=== PATIENT | male | born 1945 | race Caucasian/White ===

== ENCOUNTER 2019-05-23 08:54 | Emergency (ER) | payer MEDICARE, OTHER ==
--- NOTE | 2019-05-23 09:21 | EDM.PDOC ---
ED HPI GENERAL MEDICAL PROBLEM - General Chief Complaint: Lower Extremity Injury/Pain Stated Complaint: PAIN IN LEFT KNEE Time Seen by Provider: 05/23/19 09:20 Source of Information: Reports: Patient History Limitations: Reports: No Limitations - History of Present Illness INITIAL COMMENTS - FREE TEXT/NARRATIVE: 73-year-old male who reports onset of aching all over increased redness and swelling in his left lower leg getting approximately 2 days ago. The symptoms have worsened with time and at 3 AM today he began to have pain in his left knee has progressively worsened and he is unable to ambulate secondary to the pain. He also has noticed that his left knee is swollen, red and has increased warmth. He has had chills but has measured no fever at home. He also has developed nausea but has had no vomiting. His appetite is somewhat off. No difficulty breathing. No chest pain. The pain in his knee as a 10/10 with movement and is a "pain" pain. The pain is a 2/10 when he is at rest. No other joint pains other than his bodyaches. No trauma to his left knee or left leg. He always has some swelling in his left leg which has been present for the past 1-2 years but it usually improves over the weekend when he is off of his leg. There are no other associated signs or symptoms. There are no other modifying factors. Onset: Other (2 days ago as above with left knee pain beginning at 3 AM today.) Duration: Getting Worse Location: Reports: Lower Extremity, Left, Other (Aching all over) Quality: Reports: Ache Severity: Moderate (to severe) Improves with: Reports: Immobilization, Rest Worsens with: Reports: Other (Palpation), Movement Context: Reports: Other (As above) Associated Symptoms: Reports: Fever/Chills (Chills but no fever measured), Loss of Appetite, Nausea/Vomiting, Other (Redness on left lower leg.) Treatments WHIPPER: Reports: Other (see below) (Nothing) L knee Pain Score (Numeric/FACES): 4 - Related Data Allergies Allergy/AdvReac Type Severity Reaction Status Date / Time No Known Allergies Allergy Verified 05/23/19 09:04 Past Medical History HEENT History: Reports: Cataract Cardiovascular History: Reports: Arrhythmia, High Cholesterol, Hypertension Gastrointestinal History: Reports: GERD Other Gastrointestinal History: umbellical hernia Musculoskeletal History: Reports: Arthritis, Back Pain, Chronic, Osteoarthritis Endocrine/Metabolic History: Reports: Obesity/BMI 30+ Dermatologic History: Reports: Psoriasis - Infectious Disease History Infectious Disease History: Reports: Chicken Pox, Mumps - Past Surgical History HEENT Surgical History: Reports: Adenoidectomy, Cataract Surgery, Tonsillectomy Other HEENT Surgeries/Procedures: bilat cataract Musculoskeletal Surgical History: Reports: Knee Replacement Other Musculoskeletal Surgeries/Procedures:: L knee replacement 2009 Dermatological Surgical History: Reports: None Social & Family History - Tobacco Use Smoking Status *Q: Former Smoker Years of Tobacco use: 2 Used Tobacco, but Quit: Yes Month/Year Tobacco Last Used: 1998 - Caffeine Use Caffeine Use: Reports: Coffee, Soda - Alcohol Use Days Per Week of Alcohol Use: 7 Number of Drinks Per Day: 5 Total Drinks Per Week: 35 - Living Situation & Occupation Living situation: Reports: 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 Review of Systems - Review of Systems Review Of Systems: See Below Constitutional: Reports: Chills, Other (Malaise) Eyes: Reports: No Symptoms Ears: Reports: No Symptoms Nose: Reports: No Symptoms Mouth/Throat: Reports: No Symptoms Respiratory: Reports: No Symptoms Cardiovascular: Reports: No Symptoms GI/Abdominal: Reports: Nausea. Denies: Vomiting Genitourinary: Reports: No Symptoms Musculoskeletal: Reports: Leg Pain (Left lower leg pain), Joint Pain (Left knee pain), Other (Swelling in left lower extremity) Skin: Reports: Other (Redness and increased warmth from knee to foot of left lower extremity.) Neurological: Reports: No Symptoms ED EXAM, GENERAL - Physical Exam Exam: See Below Exam Limited By: No Limitations General Appearance: Alert, WD/WN, Mild Distress Eye Exam: Bilateral Eye: EOMI, Normal Inspection, PERRL Ears: Normal External Exam, Hearing Grossly Normal Ear Exam: Bilateral Ear: Auricle Normal Nose: Normal Inspection, Normal Mucosa, No Blood Throat/Mouth: Normal Inspection, Normal Oropharynx, Normal Voice, No Airway Compromise Head: Atraumatic, Normocephalic Neck: Normal Inspection, Supple, Non-Tender, Full Range of Motion Respiratory/Chest: No Respiratory Distress, Lungs Clear, Normal Breath Sounds, No Accessory Muscle Use, Chest Non-Tender Cardiovascular: Normal Peripheral Pulses, Regular Rate, Rhythm, No Murmur Peripheral Pulses: 2+: Radial (L), Radial (R), Dorsalis Pedis (L), Dorsalis Pedis (R) GI/Abdominal: Normal Bowel Sounds, Soft, Non-Tender, No Mass Back Exam: Normal Inspection Extremities: Normal Capillary Refill, Pedal Edema (In left leg), Joint Swelling (In left knee), Leg Pain, Limited Range of Motion, Increased Warmth (Over left knee and left lower leg), Redness (Left knee and left lower leg) Neurological: Alert, Oriented, CN II-XII Intact, Normal Cognition, No Motor/ Sensory Deficits Skin Exam: Warm, Dry, Intact, Erythema (Over left lower leg from knee to foot.) Course - Vital Signs Last Recorded V/S: Last Vital Signs Temp 36.7 C 05/23/19 08:54 Pulse 77 05/23/19 10:49 Resp 20 05/23/19 10:49 BP 137/55 L 05/23/19 10:49 Pulse Ox 94 L 05/23/19 10:49 - Orders/Labs/Meds Orders: Active Orders 24 hr Category Date Time Status Knee 1V or 2V Lt [CR] Stat Exams 05/23/19 09:26 Taken CULTURE BLOOD [BC] Urgent Lab 05/23/19 09:11 Received CULTURE BLOOD [BC] Urgent Lab 05/23/19 10:05 Received Sodium Chloride 0.9% [Saline Flush] Med 05/23/19 09:34 Active 10 ml FLUSH ASDIRECTED PRN Blood Culture x2 Reflex Set [OM.PC] Urgent Oth 05/23/19 09:34 Ordered Peripheral IV Insertion Adult [OM.PC] Routine Oth 05/23/19 09:34 Ordered Medication Orders Sodium Chloride (Saline Flush) 10 ml FLUSH ASDIRECTED PRN PRN Reason: Keep Vein Open Last Admin: 05/23/19 10:30 Dose: 10 ml Labs: Laboratory Tests 05/23/19 05/23/19 05/23/19 Range/Units 09:11 09:11 09:11 WBC 14.5 H (4.5-12.0) X10-3/uL RBC 4.68 (4.30-5.75) x10(6)uL Hgb 15.4 (13.5-17.8) g/dL Hct 45.2 (30.0-51.3) % MCV 96.6 H (80-96) fL MCH 33.0 (27.7-33.6) pg MCHC 34.1 (32.2-35.4) g/dL RDW 14.1 (11.5-15.5) % Plt Count 147 (125-369) X10(3)uL MPV 8.0 (7.4-10.4) fL Add Manual Diff Yes Neutrophils % (Manual) 79 (46-82) % Band Neutrophils % 12 H (0-6) % Lymphocytes % (Manual) 5 L (13-37) % Monocytes % (Manual) 4 (4-12) % Sodium 135 (135-145) mmol/L Potassium 3.7 (3.5-5.3) mmol/L Chloride 96 L (100-110) mmol/L Carbon Dioxide 28 (21-32) mmol/L BUN 20 H (7-18) mg/dL Creatinine 1.7 H (0.70-1.30) mg/dL Est Cr Clr Drug Dosing 38.77 mL/min Estimated GFR (MDRD) 39 L (>60) BUN/Creatinine Ratio 11.8 (9-20) Glucose 161 H (80-116) mg/dL Calcium 8.8 (8.6-10.2) mg/dL Total Bilirubin 1.3 (0.1-1.3) mg/dL AST 58 H (5-25) IU/L ALT 80 H (12-36) U/L Alkaline Phosphatase 72 (56-112) IU/L C-Reactive Protein 39.2 H* (0.5-0.9) mg/dL Total Protein 7.4 (6.0-8.0) g/dL Albumin 3.3 (3.2-4.6) g/dL Globulin 4.1 g/dL Albumin/Globulin Ratio 0.8 Meds: Medications Generic Name Dose Route Start Last Admin Trade Name Freq PRN Reason Stop Dose Admin Sodium Chloride 10 ml 05/23/19 09:34 05/23/19 10:30 Saline Flush FLUSH 10 ml ASDIRECTED PRN Administration Keep Vein Open - Radiology Interpretation Free Text/Narrative:: Left knee x-ray shows component to be in appropriate position. No bony abnormality noted. - Re-Assessments/Exams Free Text/Narrative Re-Assessment/Exam: 05/23/19 10:25: Patient with elevated white blood cell count and left shift with 12% bands. He also has an elevated CRP. His creatinine is 1.7 which is worse than previous (and I think represents an acute kidney injury) and he has mild AST and ALT elevations. He appears to have a septic left knee and will need orthopedic specially services which are not available at [facility]. I discussed this with the patient and his and they would prefer that I discussed his case with the doctors at [facility] in [place]. 05/23/19 10:45: I discussed the patient's case with Dr. Bull at [facility] and he has discussed the case with the orthopedic surgeon admission nurse coordinator they do not have a surgeon that would be able to do the Explant procedure for treatment of septic artificial joint and therefore they would not be able to accept the patient in transfer. I discussed this with the patient and his and they have given me permission to discuss the patient's case with the doctors at [facility]. 05/23/19 11:10: I discussed patient's case with Dr. Wolf, orthopedic surgeon at [facility], and he wants me to discuss the patient's case with the hospitalist, Dr. Russo, and they would be able to accept the patient in transfer. Dr. Wolf did not want me to initiate any antibiotic therapy at this point. I discussed the patient's case with Dr. Russo, hospitalist at [facility], and he has agreed to accept the patient in transfer. The patient will be transferred via ambulance for direct admission to [facility]. I will keep patient NPO for now and will hydrate him with normal saline IV. Departure - Departure Time of Disposition: 11:25 Disposition: DC/Tfer to Acute Hospital 02 Condition: Fair Clinical Impression: History of arthroplasty of left knee, Acute kidney injury Septic arthritis of knee, left Qualifiers: Septic arthritis organism: due to unspecified organism Qualified Code(s): M00.9 - Pyogenic arthritis, unspecified - Discharge Information Referrals: Mathieu Dumont MD [Primary Care Provider] - Forms: ED Department Discharge - My Orders Last 24 Hours: My Active Orders 05/23/19 09:11 CULTURE BLOOD [BC] Urgent 05/23/19 09:26 Knee 1V or 2V Lt [CR] Stat 05/23/19 09:34 Sodium Chloride 0.9% [Saline Flush] 10 ml FLUSH ASDIRECTED PRN Blood Culture x2 Reflex Set [OM.PC] Urgent Peripheral IV Insertion Adult [OM.PC] Routine 05/23/19 10:05 CULTURE BLOOD [BC] Urgent - Assessment/Plan Last 24 Hours: My Active Orders 05/23/19 09:11 CULTURE BLOOD [BC] Urgent 05/23/19 09:26 Knee 1V or 2V Lt [CR] Stat 05/23/19 09:34 Sodium Chloride 0.9% [Saline Flush] 10 ml FLUSH ASDIRECTED PRN Blood Culture x2 Reflex Set [OM.PC] Urgent Peripheral IV Insertion Adult [OM.PC] Routine 05/23/19 10:05 CULTURE BLOOD [BC] Urgent
[2019-05-23] MEDS: Sodium Chloride 0.9% 10 ML Syringe FLUSH PRN (10:30)
[2019-05-23] MEDS: Sodium Chloride 0.9% 1,000 ML IV SCH (11:40)
[2019-05-23 11:54] VITALS: BP 159/60
== END 2019-05-23 12:17 ==
LOC: FB.ED 08:54
DX: T84.54XA Infection and inflammatory reaction due to internal left knee prosthesis, initial encounter (principal); M00.9 Pyogenic arthritis, unspecified; N17.9 Acute kidney failure, unspecified; E78.00 Pure hypercholesterolemia, unspecified; I10 Essential (primary) hypertension; Z96.652 Presence of left artificial knee joint; Z87.891 Personal history of nicotine dependence
CPT/HCPCS: 36415; 73560; 80053; 85025; 86140; 87040; 96360; 99284; J7030

== ENCOUNTER 2020-08-15 15:12 | Emergency (ER) | payer MEDICARE, OTHER ==
[2020-08-15 15:29] VITALS: BP 135/63; PULSE 50
--- NOTE | 2020-08-15 15:31 | EDM.PDOC ---
ED HPI GENERAL MEDICAL PROBLEM - General Chief Complaint: Gastrointestinal Problem Stated Complaint: BLACK STOOLS Time Seen by Provider: 08/15/20 15:19 Source of Information: Reports: Patient, Old Records, Provider, RN History Limitations: Reports: No Limitations - History of Present Illness INITIAL COMMENTS - FREE TEXT/NARRATIVE: 75 yo male with a pHx of peptic ulcer dz in the past felt due to ASA use was eventually put back on ASA and is concurrently on pantoprazole. A couple days ago he developed melena and today stopped his ASA and went to the clinic. His Hgb there today was 11.6 and his BUN was 54 which is up considerably from his last here just over a year ago. He was given a liter of IV fluids in the clinic and sent to the ER. He has not had vomiting or nausea. Drink an average of 4 alcoholic beverages per day. He is pretty sure he is still taking meloxicam. Thinks his ulcer was about 4 yrs ago. Has not had colonoscopy in the past 10 yrs. Onset: Sudden Onset Date: 08/13/20 Duration: Day(s): (2), Waxing/Waning Location: Reports: Abdomen (had transient, mild, epigastric pain now gone. ) Quality: Reports: Dull Severity: Mild Improves with: Reports: Other (time, now gone) Worsens with: Reports: Other (? NSAID use) Context: Reports: Other (See HPI) Associated Symptoms: Reports: No Other Symptoms Treatments COURT MONITOR: Reports: Other (see below) (held his ASA today. ) - Related Data Allergies Allergy/AdvReac Type Severity Reaction Status Date / Time No Known Allergies Allergy Verified 05/23/19 09:04 Home Meds: Home Meds Cholecalciferol (Vitamin D3) [Vitamin D3] 2,000 unit PO DAILY 05/23/19 [History] Losartan Potassium 100 mg PO DAILY 05/23/19 [History] Meloxicam 15 mg PO 12 05/23/19 [History] Metoprolol Succinate 100 mg PO DAILY 05/23/19 [History] Pantoprazole Sodium 40 mg PO DAILY 05/23/19 [History] amLODIPine Besylate [Amlodipine Besylate] 10 mg PO DAILY 05/23/19 [History] hydroCHLOROthiazide [Hydrochlorothiazide] 25 mg PO 12 05/23/19 [History] Past Medical History HEENT History: Reports: Cataract Cardiovascular History: Reports: Arrhythmia, High Cholesterol, Hypertension Gastrointestinal History: Reports: GERD Other Gastrointestinal History: umbellical hernia Musculoskeletal History: Reports: Arthritis, Back Pain, Chronic, Osteoarthritis Endocrine/Metabolic History: Reports: Obesity/BMI 30+ Dermatologic History: Reports: Psoriasis - Infectious Disease History Infectious Disease History: Reports: Chicken Pox, Mumps - Past Surgical History HEENT Surgical History: Reports: Adenoidectomy, Cataract Surgery, Tonsillectomy Other HEENT Surgeries/Procedures: bilat cataract Musculoskeletal Surgical History: Reports: Knee Replacement Other Musculoskeletal Surgeries/Procedures:: L knee replacement 2009 Dermatological Surgical History: Reports: None Social & Family History - Family History Family Medical History: No Pertinent Family History - Caffeine Use Caffeine Use: Reports: Coffee, Soda - Living Situation & Occupation Living situation: Reports: 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 Denies: Hematemesis, Nausea, Vomiting : Reports: No Symptoms Musculoskeletal: Reports: No Symptoms Skin: Reports: No Symptoms Neurological: Reports: No Symptoms ED EXAM, GI/ABD - Physical Exam Exam: See Below Exam Limited By: No Limitations General Appearance: Alert, WD/WN, No Apparent Distress, Obese Eyes: Bilateral: Normal Appearance Ears: Normal External Exam, Normal Canal, Hearing Grossly Normal Nose: Normal Inspection, No Blood Throat/Mouth: Normal Inspection, Normal Lips, Normal Oropharynx, Normal Voice, No Airway Compromise Head: Atraumatic, Normocephalic Neck: Normal Inspection Respiratory/Chest: No Respiratory Distress, Lungs Clear, Normal Breath Sounds, No Accessory Muscle Use Cardiovascular: Regular Rate, Rhythm, No Edema GI/Abdominal Exam: Normal Bowel Sounds, Soft, Non-Tender, No Distention Back Exam: Normal Inspection. No: CVA Tenderness (R), CVA Tenderness (L) Extremities: Normal Inspection, Normal Range of Motion, Non-Tender, No Pedal Edema Neurological: Alert, Oriented, CN II-XII Intact, Normal Cognition, No Motor/Sensory Deficits Psychiatric: Normal Affect, Normal Mood Skin Exam: Warm, Dry, Intact, Normal Color, No Rash Course - Vital Signs Last Recorded V/S: Last Vital Signs Temp 36.7 C 08/15/20 15:12 Pulse 50 L 08/15/20 15:12 Resp 16 08/15/20 15:12 BP 135/63 08/15/20 15:12 Pulse Ox 96 08/15/20 15:12 - Orders/Labs/Meds Orders: Active Orders 24 hr Category Date Time Status Orthostatic Vital Signs [RC] ASDIRECTED Care 08/15/20 15:16 Active Hemoccult [OCCULT BLOOD DIAGNOSTIC] [OP] Stat Lab 08/15/20 16:09 Received Meds: Medications Discontinued Medications Generic Name Dose Route Start Last Admin Trade Name Josseline PRN Reason Stop Dose Admin Al Hydroxide/Mg Hydroxide 30 ml 08/15/20 15:36 08/15/20 16:13 Mag-Al Susp PO 08/15/20 15:37 30 ml NOW STA Administration Departure - Departure Time of Disposition: 16:40 Disposition: Home, Self-Care 01 Condition: Fair Clinical Impression: GI bleed Qualifiers: GI bleed type/associated pathology: melena Qualified Code(s): K92.1 - Melena - Discharge Information *PRESCRIPTION DRUG MONITORING PROGRAM REVIEWED*: Not Applicable *COPY OF PRESCRIPTION DRUG MONITORING REPORT IN PATIENT GREG: Not Applicable Instructions: Gastrointestinal Bleeding Referrals: Mathieu Dumont MD [Primary Care Provider] - Forms: ED Department Discharge Additional Instructions: Stop your meloxicam and your aspirin. Continue all your other medications including your pantoprazole. Take Maalox 30 ml, 2 tablespoons after meals and at bedtime. Avoid also: carbonated beverages, caffeine containing beverages, or alcohol. Return Thursday morning as discussed for your upper and lower scoping of your GI tract. Take the prep as directed starting tomorrow. Return if your bleeding gets heavy and you are dizzy with standing or if you vomit blood. Sepsis Event Note (ED) - Focused Exam Vital Signs: Vital Signs Temp Pulse Resp BP Pulse Ox 08/15/20 15:12 36.7 C 50 L 16 135/63 96 - My Orders Last 24 Hours: My Active Orders 08/15/20 15:16 Orthostatic Vital Signs [RC] ASDIRECTED 08/15/20 16:09 Hemoccult [OCCULT BLOOD DIAGNOSTIC] [OP] Stat - Assessment/Plan Last 24 Hours: My Active Orders 08/15/20 15:16 Orthostatic Vital Signs [RC] ASDIRECTED 08/15/20 16:09 Hemoccult [OCCULT BLOOD DIAGNOSTIC] [OP] Stat
[2020-08-15] MEDS ORDERED: Aluminum Hydroxide/Magnesium Hydroxide Susp 30 ML Cup PO STA (15:36)
[2020-08-15] MEDS ORDERED: Bisacodyl 5 MG Tab PO ONE (17:00)
[2020-08-15] MEDS ORDERED: Polyethylene Glycol 3350 Powder 238 GM Bot PO ONE (17:00)
== END 2020-08-15 17:20 | disposition home or self-care (01) ==
LOC: FB.ED 15:12
DX: K92.1 Melena (principal); I10 Essential (primary) hypertension; K21.9 Gastro-esophageal reflux disease without esophagitis; E66.9 Obesity, unspecified; Z68.41 Body mass index [BMI] 40.0-44.9, adult; Z79.899 Other long term (current) drug therapy
CPT/HCPCS: 82272; 99284; A9270-GY

== ENCOUNTER 2020-08-17 06:32 | Day surgery (SDC) | payer MEDICARE, OTHER ==
[2020-08-17] MEDS ORDERED: Propofol 200 MG/20 ML SDV IV ONE (06:33)
[2020-08-17] MEDS ORDERED: Lidocaine 2% 5 ML SDV IV ONE (06:33)
[2020-08-17] MEDS ORDERED: Sodium Chloride 0.9% 10 ML Syringe FLUSH PRN (06:45)
[2020-08-17] MEDS ORDERED: Lactated Ringers 1,000 ML IV SCH (06:45)
--- NOTE | 2020-08-17 09:18 | PREOP ---
ADMISSION DATE: 08/17/2020 This 75-year-old male is here today for EGD and colonoscopy. He has had a recent history of significant melena and some upper abdominal pain. He does have a known history of gastric problems from aspirin and NSAIDs in the past, but it has been several years since his last colonoscopy, and he has been passing some visibly red blood. The patient has been otherwise stable. He has had no shortness of breath, cough, or any other symptoms but is noted on his evaluation this morning to be COVID positive. Despite that, with his symptoms, diagnostic studies to identify his active bleeding are indicated, and decision was made to proceed with EGD and colonoscopy as scheduled but with appropriate PPE precautions. I have discussed the proposed operative procedure with the patient as well as his positive COVID diagnosis. Risks and possible complications reviewed, and the patient agrees to proceed. /[id number] GASPER/YOLANDA
--- NOTE | 2020-08-17 09:49 | PCM.OPNOTE ---
- General Post-Op/Procedure Note Date of Surgery/Procedure: 08/17/20 Operative Procedure(s): EGD and Colonoscopy Findings: Acute Gastric Ulcer in gastric antrum Small amount of uncomplicated Left Colon Diverticulosis Large amount of old blood in stomach and Colon but no active bleeding at this t quoc Pre Op Diagnosis: GI bleed Post-Op Diagnosis: Gastric Ulcer. Left Colon Diverticulosis Anesthesia Technique: MAC Primary Surgeon: Mik Roland Pathology: none EBL in mLs: 0 Complications: None Condition: Good
--- NOTE | 2020-08-17 10:33 | OR ---
DATE OF OPERATION: 08/17/2020 SURGEON: Mik Roland MD PREOPERATIVE DIAGNOSIS: History of gastrointestinal bleed. POSTOPERATIVE DIAGNOSES: Gastric ulcer, left colon diverticulosis, and hiatal hernia. OPERATIONS PERFORMED: Esophagogastroduodenoscopy and colonoscopy. INDICATIONS FOR SURGERY: This 75-year-old male was noted to have some blood in the stool and slightly low blood count. This has been persistent and he comes today for EGD and colonoscopy. FINDINGS: On upper endoscopy, the patient was noted to have an acute ulcer. It is located in the gastric antrum near the pylorus. The ulcer base at this time appears clean. I do not see any active bleeding from the ulcer base at this time. There was also a moderate-sized hiatal hernia noted on upper endoscopy, but without acute inflammation. In the colon, there was a mild degree of sigmoid diverticulosis on the left side. I did not see any signs of inflammation or bleeding from the diverticulosis. There was a large amount of old blood noted both in the stomach as well as throughout the colon. This may have obscured small lesions, but no other larger lesions and again no fresh blood is seen during today's exam. PROCEDURE IN DETAIL: The patient was taken to the procedure room. He was given intravenous sedation, and with the staff in full COVID protective PPE, the gastroscope was advanced into the oral cavity through a mouth guard. It was then carefully advanced down through the esophagus, stomach, and into the duodenum where the first portion was examined. The examination of the stomach was carried out including retroflexed examination of the fundus and the esophagus was also examined. The EGD examination was limited and performed rapidly because of some coughing and low O2 saturations, so other lesions may have been obscured especially by the large amount of old blood located in the stomach, but no other significant abnormalities other than the ulcer and the hiatal hernia were noted. Attention was then turned to colonoscopy. Digital rectal exam was performed showing no rectal masses. The Olympus colonoscope was inserted into the rectum and retroflexed examination of the rectum was carried out. The scope was then carefully advanced under direct visualization through the entire length of the colon until the cecum was reached. Cecal acquisition was confirmed by noting the normal cecal anatomy including the appendiceal orifice and ileocecal valve. The scope was then slowly withdrawn, sequentially re-examining the colonic segments until the entire colon and rectum had been examined. Again, the examination here was somewhat limited because of the large amount of old blood noted, but no active bleeding was seen and no major lesions were noted. After the colonoscopy was completed, the patient remained in the procedure room for recovery. He tolerated the procedure satisfactorily, and there was no sign of complication and estimated blood loss was 0. /[id number] GASPER/YOLANDA DAVID
[2020-08-18] MEDS: Sodium Chloride 0.9% 250 ML IV SCH ×2 (09:14→11:05)
[2020-08-18 14:34] VITALS: BP 126/65; PULSE 55
== END 2020-08-18 14:20 ==
LOC: FB.MS 06:32 → FB.SDS 06:32 → FB.MS 06:36 → FB.SDS 15:15 → FB.MS 15:15 → FB.SDS 08-18 14:20
PROVIDERS: ATTEND Surgery
DX: K57.31 Diverticulosis of large intestine without perforation or abscess with bleeding (principal); U07.1 COVID-19; K25.9 Gastric ulcer, unspecified as acute or chronic, without hemorrhage or perforation; K44.9 Diaphragmatic hernia without obstruction or gangrene; I10 Essential (primary) hypertension; E78.5 Hyperlipidemia, unspecified; E66.9 Obesity, unspecified; Z98.890 Other specified postprocedural states; Z79.899 Other long term (current) drug therapy; Z88.8 Allergy status to other drugs, medicaments and biological substances; Z87.891 Personal history of nicotine dependence; Z68.41 Body mass index [BMI] 40.0-44.9, adult
CPT/HCPCS: 00813; 36415; 36430; 43235; 45378; 85018; 86850; 86900; 86901; 86920; 86922; J2001; J2704; J7050; P9016; U0002

== ENCOUNTER 2023-01-26 22:56 | Emergency (ER) | payer MEDICARE, OTHER ==
[2023-01-26] MEDS ORDERED: traMADol 50 MG Tab PO ONE (22:57)
[2023-01-26 23:20] VITALS: BP 122/62; PULSE 61
== END 2023-01-26 23:27 | disposition home or self-care (01) ==
LOC: FB.ED 22:56
DX: M23.91 Unspecified internal derangement of right knee (principal); I10 Essential (primary) hypertension; K21.9 Gastro-esophageal reflux disease without esophagitis; E66.9 Obesity, unspecified; Z79.899 Other long term (current) drug therapy; Z68.41 Body mass index [BMI] 40.0-44.9, adult
CPT/HCPCS: 99283; A9270